=== PATIENT | female | born 1965 | race Caucasian/White ===

== ENCOUNTER 2016-10-16 09:33 | Day surgery (SDC) | payer BC, OTHER ==
[2016-10-15 11:24] VITALS: BMI 34.3
[2016-10-16] MEDS ORDERED: DEXAMETHASONE SOD PHOSPHATE 4 MG/1 ML VIAL ONE (12:03)
[2016-10-16] MEDS ORDERED: ceFAZolin SODIUM 1 GM VIAL ONE (12:03)
[2016-10-16] MEDS ORDERED: SODIUM CHLORIDE 0.9% P/F 10 ML VIAL IJ ONE (12:03)
[2016-10-16] MEDS ORDERED: MIDAZOLAM HCL 2 MG/2 ML SINGLE DOSE VIAL ONE (12:04)
[2016-10-16] MEDS ORDERED: PROPOFOL 20 ML ONE ×2 (12:04)
--- NOTE | 2016-10-16 12:27 | HP ---
History & Physical Update - History History: No Change - Physical Physical: No Change - Assessment Assessment: No Change - Plan Plan: No Change
[2016-10-16] MEDS ORDERED: ACETAMINOPHEN 1000 MG/100 ML VIAL (NON FORMULARY) IVPB ONE (12:28)
[2016-10-16] MEDS ORDERED: ceFAZolin SODIUM 1 GM VIAL IVPB ONE (12:30)
[2016-10-16] MEDS ORDERED: DEXTROSE 5%-0.45% SALINE 1,000 ML IV SCH (12:30)
[2016-10-16] MEDS ORDERED: ACETAMINOPHEN INJECTION 100 ML IVPB ONE (13:27)
[2016-10-16] MEDS ORDERED: ONDANSETRON 4 MG/2 ML VIAL IVPUSH PRN (13:46)
[2016-10-16] MEDS ORDERED: oxyCODONE HCL 5 MG TABLET PO PRN (13:46)
[2016-10-16] MEDS ORDERED: LACTATED RINGERS SOLUTION 1,000 ML IV SCH (14:00)
[2016-10-16 14:06] VITALS: TEMP 97.9
[2016-10-16 15:27] VITALS: BP 129/80; PULSE 58
--- NOTE | 2016-11-05 20:25 | OP ---
DATE OF OPERATION: 10/16/2016 SURGEON: Julio Tavarez M.D. PREOPERATIVE DIAGNOSIS: Left renal calculus. POSTOPERATIVE DIAGNOSIS: Left renal calculus. PROCEDURE: Left extracorporeal shock wave lithotripsy. ANESTHESIOLOGIST: Shiv Xiao M.D. PREOPERATIVE INDICATION: The patient was a 50-year-old female with recurrent kidney stone disease. She has a stone in both kidneys. However, the left side has been giving her a lot of pain. She comes to the OR for ESWL. OPERATION: The patient brought to the OR, placed on the table in supine position. Given general anesthesia and IV antibiotics. The stone was visualized in the left kidney on 3 planes. ESWL was performed, 2500 shocks were applied to the stone. The patient tolerated procedure well, she was then woken up and transferred to the recovery room. JULIO TAVAREZ M.D. [id number]
== END 2016-10-16 15:29 | disposition home or self-care (01) ==
LOC: JASU-SURG 09:33
PROVIDERS: ATTEND Urology
PROC: 0TF4XZZ Fragmentation in Left Kidney Pelvis, External Approach (ICD-10-PCS; principal; 2016-10-16 12:00)
DX: N20.0 Calculus of kidney (principal)
CPT/HCPCS: 94760

== ENCOUNTER 2021-01-16 05:17 | Day surgery (SDC) | payer OTHER ==
[2021-01-13 13:28] VITALS: BMI 35.5
[2021-01-16] MEDS ORDERED: PHENAZOPYRIDINE HCL 100 MG TABLET (FP) ONE (06:23)
[2021-01-16] MEDS ORDERED: ceFAZolin SODIUM 1 GM VIAL ONE (06:23)
[2021-01-16] MEDS ORDERED: CEFAZOLIN 2 GM/D5W 2 GM/50 ML ML IVPB ONE (07:00)
[2021-01-16] MEDS ORDERED: PHENAZOPYRIDINE HCL 100 MG TABLET (FP) PO ONE (07:00)
[2021-01-16] MEDS ORDERED: MIDAZOLAM HCL 2 MG/2 ML SINGLE DOSE VIAL ONE ×3 (07:12→07:18)
[2021-01-16] MEDS ORDERED: BUPIVACAINE LIPOSOME/PF (EXPAREL) 266 MG/20 ML VIAL ONE (07:14)
[2021-01-16] MEDS ORDERED: ATROPINE SO4 0.4 MG/1 ML VIAL ONE (07:17)
[2021-01-16] MEDS ORDERED: fentaNYL CITRATE 250 MCG/5 ML VIAL ONE (07:18)
[2021-01-16] MEDS ORDERED: PROPOFOL 20 ML ONE (07:18)
[2021-01-16] MEDS ORDERED: EPHEDRINE SULFATE/0.9% NACL/PF 50 MG/10 ML SYRINGE NR ONE (07:18)
[2021-01-16] MEDS ORDERED: ceFAZolin SODIUM 1 GM VIAL IVPB ONE (08:07)
[2021-01-16] MEDS ORDERED: ROCURONIUM BROMIDE 50 MG/5 ML SYRINGE ONE (08:56)
[2021-01-16] MEDS ORDERED: GLYCOPYRROLATE 0.2 MG/1 ML VIAL ONE (09:26)
[2021-01-16] MEDS ORDERED: NEOSTIGMINE METHYLSULFATE 0.5 MG/ML - 10 ML MDV ONE (09:26)
[2021-01-16] MEDS ORDERED: oxyCODONE HCL 5 MG TABLET PO PRN ×2 (10:00)
[2021-01-16] MEDS ORDERED: IBUPROFEN 800 MG/8 ML IJ IVPB PRN (10:00)
[2021-01-16] MEDS ORDERED: DOCUSATE SODIUM 100 MG CAPSULE (FP) PO PRN (10:00)
[2021-01-16] MEDS ORDERED: ONDANSETRON 4 MG/2 ML VIAL IVPUSH PRN (10:00)
[2021-01-16] MEDS ORDERED: BISACODYL 5 MG TABLET.DR (FP) PO PRN (10:00)
[2021-01-16] MEDS ORDERED: ALBUTEROL SO4 HFA INHALER IH PRN (10:05)
[2021-01-16] MEDS ORDERED: SODIUM CHLORIDE 1,000 ML IV SCH (10:15)
[2021-01-16] MEDS: hydrALAZINE HCL 20 MG/ML VIAL ONE ×2 (10:36→11:25)
[2021-01-16] MEDS ORDERED: hydrALAZINE HCL 20 MG/ML VIAL IVPUSH ONE (12:03)
[2021-01-16] MEDS: ACETAMINOPHEN 1000 MG/100 ML VIAL (NON FORMULARY) IVPB SCH ×2 (12:04→18:48)
[2021-01-16] MEDS: MECLIZINE HCL 25 MG TABLET (FP) PO SCH ×2 (15:13→21:18)
[2021-01-16] MEDS ORDERED: CEFAZOLIN 1 GM in DEXTROSE 5%-WATER - 1 GM/50 ML IVPB IVPB SCH (16:00)
[2021-01-16] MEDS: CEFAZOLIN 1 GM/D5W 1 GM/50 ML BAG IVPB SCH ×2 (16:16→23:55)
[2021-01-16 19:21] LABS: HEMATOCRIT 37.9 % (32.4-45.2); HEMOGLOBIN 12.9 GM/dL (10.7-15.3); MCHC 34.1 g/dl (32.0-36.0); MEAN CELL VOLUME 85.1 fl (80-96); MEAN PLT VOLUME 7.7 fl (7.5-11.1); PLATELET COUNT 199 K/MM3 (134-434); RBC 4.46 M/mm3 (3.60-5.2); RDW 15.3 % (11.6-15.6); WHITE BLOOD COUNT 5.4 K/mm3 (4.0-10.0)
[2021-01-16 19:45] LABS: BLOOD UREA NITROGEN 10.2 mg/dL (7-18); CALCIUM 8.8 mg/dL (8.5-10.1)
[2021-01-17] MEDS: ACETAMINOPHEN 1000 MG/100 ML VIAL (NON FORMULARY) IVPB SCH ×3 (00:42→09:48)
[2021-01-17] MEDS: SIMETHICONE 80 MG TAB.CHEW (FP) PO PRN ×2 (00:42→05:48)
[2021-01-17] MEDS: MECLIZINE HCL 25 MG TABLET (FP) PO SCH (05:48)
[2021-01-17 07:47] LABS: HEMATOCRIT 36.7 % (32.4-45.2); HEMOGLOBIN 12.5 GM/dL (10.7-15.3); MCH 28.7 pg (25.7-33.7); MCHC 34.1 g/dl (32.0-36.0); MEAN CELL VOLUME 84.2 fl (80-96); MEAN PLT VOLUME 7.6 fl (7.5-11.1); PLATELET COUNT 191 K/MM3 (134-434); RBC 4.36 M/mm3 (3.60-5.2); RDW 15.4 % (11.6-15.6); WHITE BLOOD COUNT 9.2 K/mm3 (4.0-10.0)
[2021-01-17 08:14] LABS: BLOOD UREA NITROGEN 9.3 mg/dL (7-18); CALCIUM 8.5 mg/dL (8.5-10.1)
[2021-01-17 08:17] LABS: CREATININE 0.9 mg/dL (0.55-1.3)
[2021-01-17] MEDS: CEFAZOLIN 1 GM/D5W 1 GM/50 ML BAG IVPB SCH (08:38)
[2021-01-17] MEDS ORDERED: DULoxetine HCL 30 MG CAPSULE.DR PO SCH (10:00)
[2021-01-17] MEDS ORDERED: FLUTICASONE PROP 0.05% 16 GM NASAL SPRAY NS SCH (10:00)
[2021-01-17] MEDS ORDERED: LORATADINE 10 MG TABLET PO SCH (10:00)
[2021-01-17] MEDS ORDERED: PATIENT'S OWN MEDICATION (NON-FORMULARY) (Valsartan/Hydrochlorothiazide [Valsartan-Hctz 80 PO SCH (10:00)
[2021-01-17] MEDS ORDERED: ENOXAPARIN NA (PORCINE) 40 MG/0.4 ML DISP.SYRIN SQ SCH (10:00)
[2021-01-17] MEDS ORDERED: PANTOPRAZOLE 40 MG TABLET PO SCH (10:00)
[2021-01-17] MEDS ORDERED: PATIENT'S OWN MEDICATION (NON-FORMULARY) (Linaclotide [Linzess] 145 MCG Capsule) PO SCH (10:00)
[2021-01-17] MEDS ORDERED: HYDROCHLOROTHIAZIDE 12.5 MG CAPSULE (FP) PO SCH (10:00)
[2021-01-17] MEDS ORDERED: NEBIVOLOL 10 MG TABLET (FP) PO SCH (10:00)
[2021-01-17] MEDS ORDERED: VALSARTAN 80 MG TABLET PO SCH (10:00)
[2021-01-17 10:56] VITALS: BP 130/74; PULSE 61; TEMP 98
[2021-01-17] MEDS ORDERED: ACETAMINOPHEN 325 MG TABLET (FP) PO PRN (16:00)
== END 2021-01-17 11:10 | disposition home or self-care (01) ==
LOC: JASUSAT 05:17 → JASU-SURG 05:17 → J3W 12:47 → JASUSAT 01-17 11:10
PROVIDERS: ATTEND Obstetrics & Gynecology
PROC: 8E0W4CZ Robotic Assisted Procedure of Trunk Region, Percutaneous Endoscopic Approach (ICD-10-PCS; 2021-01-16)
PROC: 0UT9FZZ Resection of Uterus, Via Natural or Artificial Opening With Percutaneous Endoscopic Assistance (ICD-10-PCS; principal; 2021-01-16 07:30)
PROC: 0UT2FZZ Resection of Bilateral Ovaries, Via Natural or Artificial Opening With Percutaneous Endoscopic Assistance (ICD-10-PCS; 2021-01-16 07:30)
PROC: 0UT7FZZ Resection of Bilateral Fallopian Tubes, Via Natural or Artificial Opening With Percutaneous Endoscopic Assistance (ICD-10-PCS; 2021-01-16 07:30)
DX: D25.9 Leiomyoma of uterus, unspecified (principal); N72 Inflammatory disease of cervix uteri; N83.291 Other ovarian cyst, right side; N83.8 Other noninflammatory disorders of ovary, fallopian tube and broad ligament; N84.1 Polyp of cervix uteri; N83.292 Other ovarian cyst, left side
CPT/HCPCS: 58552; S2900; 36415; 80048; 85027; 86850; 86900; 86901; 88302-TC; 88307-TC; 94760; J0131

== ENCOUNTER 2023-03-08 16:01 | Emergency (ER) | payer OTHER ==
[2023-03-08 16:09] VITALS: BP 123/46; PULSE 57; RESP 16; TEMP 98.2; BMI 34.3
[2023-03-08] MEDS ORDERED: LIDOCAINE 5% TOPICAL PATCH ONE (17:02)
[2023-03-08] MEDS ORDERED: LIDOCAINE 5% TOPICAL PATCH TP ONE (17:02)
[2023-03-08] MEDS ORDERED: KETOROLAC TROMETHAMINE 30 MG/1 ML VIAL ONE (17:03)
[2023-03-08] MEDS ORDERED: METHOCARBAMOL 500 MG TABLET PO ONE (17:03)
[2023-03-08] MEDS ORDERED: METHOCARBAMOL 500 MG TABLET ONE (17:04)
[2023-03-08] MEDS ORDERED: ACETAMINOPHEN 500 MG TABLET (FP) ONE (17:06)
[2023-03-08] MEDS ORDERED: KETOROLAC TROMETHAMINE 30 MG/1 ML VIAL IM ONE (17:09)
[2023-03-08] MEDS ORDERED: LIDOCAINE PATCH REMOVAL MC SCH (22:00)
== END 2023-03-08 18:15 | disposition home or self-care (01) ==
LOC: JERFT 16:01
DX: M54.30 Sciatica, unspecified side (principal); M54.9 Dorsalgia, unspecified; M79.605 Pain in left leg; M79.604 Pain in right leg; M79.89 Other specified soft tissue disorders
CPT/HCPCS: 99283-25; 99284-25

== ENCOUNTER 2024-08-11 04:50 | Day surgery (SDC) | payer OTHER ==
[2024-08-10 16:36] VITALS: BMI 34.7
[2024-08-11 08:47] VITALS: TEMP 98.2
[2024-08-11 10:13] VITALS: RESP 18
[2024-08-11 10:51] VITALS: BP 158/87; PULSE 55
== END 2024-08-11 10:51 | disposition home or self-care (01) ==
LOC: JASU-ENDO 04:50
PROVIDERS: ATTEND Internal Medicine Gastroenterology
PROC: 0DBL8ZX Excision of Transverse Colon, Via Natural or Artificial Opening Endoscopic, Diagnostic (ICD-10-PCS; principal; 2024-08-11 10:00)
DX: Z12.11 Encounter for screening for malignant neoplasm of colon (principal); K63.5 Polyp of colon; K63.89 Other specified diseases of intestine; K64.8 Other hemorrhoids; K57.30 Diverticulosis of large intestine without perforation or abscess without bleeding
CPT/HCPCS: 88305-TC